=== PATIENT | female | born 1950 | race Caucasian/White ===

== ENCOUNTER 2019-09-12 19:40 | Emergency (ER) | payer MEDICARE, MEDICAID ==
[~2019-09-12] VITALS: Ht 165.1 cm; Wt 107.0 kg
[~2019-09-12 19:40] MED LIST: ATI0.5T; ATOR80TA PO; CARB1TAB21; DONE5TAB26; GABA-347 PO; IBUP-1572; LEVO100T PO; LOSA25TA41 PO; MEMA5TAB; PALI9TAB3 PO; QUET50TA22; SERT50TA10; SITA100T15 PO
[2019-09-12] MEDS ORDERED: normal saline 1000ml 1,000 ML IV ONE (20:40)
[2019-09-12 20:45] LABS: BASOPHILS % (AUTO) 0.3 % (0-1); EOSINOPHILS # (AUTO) 0.1 X10'3 (0-0.9); HEMATOCRIT 31.2 % (35.0-45.0); HEMOGLOBIN 10.5 g/dl (12.0-16.0); LYMPHOCYTES # (AUTO) 0.9 X10'3 (1.1-4.8); LYMPHOCYTES % (AUTO) 14.3 % (21-51); MEAN CORPUSCULAR HEMOGLOBIN 32.1 PG (27.0-31.0); MEAN CORPUSCULAR HGB CONC 33.6 g/dL (33.0-36.5); MEAN CORPUSCULAR VOLUME 95.4 FL (78-98); MEAN PLATELET VOLUME 9.3 FL (7.4-10.4); MONOCYTES # (AUTO) 0.7 X10'3 (0-0.9); MONOCYTES % (AUTO) 10.8 % (2-12); NEUTROPHILS # (AUTO) 4.7 X10'3 (1.8-7.7); NEUTROPHILS % (AUTO) 73.6 % (42-75); PLATELET COUNT 145 X10'3 (140-440); RED BLOOD COUNT 3.27 X10'6 (4.20-5.60); RED CELL DISTRIBUTION WIDTH 14.5 % (11.5-14.5); WHITE BLOOD COUNT 6.4 X10'3 (4.5-11.0)
[2019-09-12 20:52] LABS: ALANINE AMINOTRANSFERASE 30 U/L (12-78); ALBUMIN 3.4 G/DL (3.4-5.0); ALBUMIN/GLOBULIN RATIO 1.1 (1.1-1.5); ALKALINE PHOSPHATASE 91 IU/L (46-116); ANION GAP 9 (8-16); ASPARTATE AMINO TRANSFERASE 41 U/L (10-37); BILIRUBIN,TOTAL 0.6 MG/DL (0.1-1.0); BLOOD UREA NITROGEN 43 MG/DL (7-18); CALCIUM 8.4 MG/DL (8.5-10.1); CHLORIDE 109 MMOL/L (99-107); CREATININE 1.87 MG/DL (0.40-0.90); GLUCOSE 165 MG/DL (70-104); MAGNESIUM 1.6 MG/DL (1.5-2.4); POTASSIUM 3.2 MMOL/L (3.5-5.1); SODIUM 143 MMOL/L (135-145); TOTAL CARBON DIOXIDE 25.2 MMOL/L (24-32); TOTAL PROTEIN 6.5 G/DL (6.4-8.2); eGFR 27 ML/MIN
[2019-09-12] MEDS ORDERED: potassium Cl 20 mEq SR tablet PO STA (21:17)
[2019-09-12] MEDS ORDERED: acetaminophen 325mg tablet PO ONE (21:20)
[2019-09-12] MEDS ORDERED: ondansetron/PF 4mg/2ml inj IV ONE (21:20)
[2019-09-12 22:16] VITALS: BP 135/56
--- NOTE | 2019-09-13 10:04 | NUR ---
Dr. Bhatia was notified by radiologist that patient had a possible fracture of the calcaneus and if patient was having a hard time walking or increased pain today then to come back for a repeat xray. Patient was notified regarding this and stated that her patient was minimal and that it had not worsened. Patient also stated that she could walk on the foot with no difficulty. Patient stated that she would return if still having pain or increased pain in one week. Notifed Dr. Bhatia regarding this.
== END 2019-09-12 23:45 | disposition home or self-care (01) ==
LOC: ER 19:40
DX: M25.571 Pain in right ankle and joints of right foot (principal); E86.0 Dehydration; R53.1 Weakness; E11.65 Type 2 diabetes mellitus with hyperglycemia; F20.9 Schizophrenia, unspecified; Z88.8 Allergy status to other drugs, medicaments and biological substances; Z79.899 Other long term (current) drug therapy; W18.30XA Fall on same level, unspecified, initial encounter; Y93.89 Activity, other specified; Y92.89 Other specified places as the place of occurrence of the external cause; Y99.9 Unspecified external cause status
CPT/HCPCS: 36415; 73610; 80053; 82948; 83735; 85025; 96361; 96374; 99284; J2405; J7030

== ENCOUNTER → 2023-02-23 | Emergency (ER) | payer MEDICARE, MEDICAID ==
[~2023-02-23] VITALS: Ht 157.5 cm; Wt 70.9 kg
[~2023-02-23] MED LIST changes: +ACET-1008 PO; +ALEN70TA80 PO; -ATI0.5T; +ATI1T PO; +ATOR40TA72 PO; +BENZ1TAB79 PO; +BENZ2TAB66 PO; -CARB1TAB21; -DONE5TAB26; +DULA1.5P SQ; +FURO-150 PO; -GABA-347 PO; -IBUP-1572; -LEVO100T PO; +LEVO112T5 PO; +LEVO150T PO; +LOSA50TA64 PO; -MEMA5TAB; +METF-438 PO; +METF500T PO; +OLANZapine **IM** 10 mg inj. IM ONE; -PALI9TAB3 PO; -QUET50TA22; +QUEtiapine 25mg tablet PO STA; +RISP120S SQ; +RISP1TAB98 PO; +RISP2TAB85 PO; -SERT50TA10; -SITA100T15 PO; +TRAZ-251 PO; +acetaminophen 325mg tablet PO ONE; +acetaminophen 325mg tablet PO PRN; +diazepam inj 5 MG/ML inj. IM ONE; +diazepam inj 5 MG/ML inj. IV ONE; +diazepam inj 5 MG/ML inj. ONE; +diphenhydrAMINE 50 mg/ml inj IM ONE; +diphenhydrAMINE 50 mg/ml inj ONE; +levoTHYROXINE 112mcg tablet PO ONE; +loperamide 2mg capsule PO PRN; +magnesium citrate 296ml oral solution PO ONE; +magnesium hydroxide 30ml (MOM) UD suspension PO ONE
[2023-02-23 17:32] LABS: BILIRUBIN,URINE NEGATIVE (Neg); CLARITY,URINE SLIGHTLY CLOUDY (Clear); COLOR,URINE YELLOW (Yellow); GLUCOSE, URINE NEGATIVE (Neg); KETONES,URINE NEGATIVE (Neg); LEUKOCYTE ESTERASE ,URINE SMALL (Neg); NITRITES, URINE NEGATIVE (Neg); OCCULT BLOOD,URINE NEGATIVE (Neg); PROTEIN,URINE NEGATIVE (Neg); UROBILINOGEN,URINE 0.2 E.U/dL (0.2-1.0)
[2023-02-23 17:38] LABS: MUCUS STRANDS FEW /LPF (Neg); SQUAMOUS EPITHELIAL CELL,UR MODERATE /LPF (FEW); UA COLLECTION TYPE CLN CATCH MIDSTREAM
[2023-02-23 17:39] LABS: BACTERIA,URINE 1+ /HPF (Neg); HYALINE CASTS 0-3 /LPF (NEGATIVE); RBC,URINE 0-2 /HPF (0-2); TRANSITIONAL EPI CELLS,URINE FEW /HPF; WBC CLUMPS,URINE MODERATE /HPF (NEGATIVE); WBC,URINE 20-30 /HPF (0-4)
[2023-02-23 17:59] LABS: URINE AMPHETAMINE SCREEN NEGATIVE (Neg); URINE BARBITUATE SCREEN NEGATIVE (Neg); URINE BENZODIAZEPINES SCREEN NEGATIVE (Neg); URINE CANNABINOID SCREEN NEGATIVE (Neg); URINE COCAINE SCREEN NEGATIVE (Neg); URINE METHADONE SCREEN NEGATIVE (Neg); URINE OPIATE SCREEN NEGATIVE (Neg); URINE PHENCYCLIDINE SCREEN NEGATIVE (Neg)
[2023-02-23 20:51] LABS: BASOPHILS % (AUTO) 0.4 % (0-1); EOSINOPHILS # (AUTO) 0.1 X10'3 (0-0.9); EOSINOPHILS % (AUTO) 1.5 % (0-6); HEMATOCRIT 33.7 % (35.0-45.0); HEMOGLOBIN 11.3 g/dl (12.0-16.0); LYMPHOCYTES # (AUTO) 2.2 X10'3 (1.1-4.8); LYMPHOCYTES % (AUTO) 36.3 % (21-51); MEAN CORPUSCULAR HEMOGLOBIN 30.3 PG (27.0-31.0); MEAN CORPUSCULAR HGB CONC 33.5 g/dL (33.0-36.5); MEAN CORPUSCULAR VOLUME 90.5 FL (78-98); MEAN PLATELET VOLUME 8.9 FL (7.4-10.4); MONOCYTES # (AUTO) 0.6 X10'3 (0-0.9); MONOCYTES % (AUTO) 8.9 % (2-12); NEUTROPHILS # (AUTO) 3.3 X10'3 (1.8-7.7); NEUTROPHILS % (AUTO) 52.9 % (42-75); PLATELET COUNT 194 X10'3 (140-440); RED BLOOD COUNT 3.72 X10'6 (4.20-5.60); RED CELL DISTRIBUTION WIDTH 13.6 % (11.5-14.5); WHITE BLOOD COUNT 6.2 X10'3 (4.5-11.0)
[2023-02-23 20:57] LABS: ALANINE AMINOTRANSFERASE 27 U/L (12-78); ALBUMIN/GLOBULIN RATIO 0.8 (1.1-1.5); ALKALINE PHOSPHATASE 71 IU/L (46-116); ANION GAP 13 (8-16); ASPARTATE AMINO TRANSFERASE 24 U/L (10-37); BILIRUBIN,TOTAL 0.4 MG/DL (0.1-1.0); BLOOD UREA NITROGEN 26 MG/DL (7-18); BUN/CREATININE RATIO 23.4 (10.0-20.0); CALCIUM 8.2 MG/DL (8.5-10.1); CHLORIDE 106 MMOL/L (99-107); CREATININE 1.11 MG/DL (0.40-0.90); ETHANOL < 10 MG/DL (<10); GLUCOSE 108 MG/DL (70-104); POTASSIUM 3.5 MMOL/L (3.5-5.1); SODIUM 145 MMOL/L (135-145); TOTAL CARBON DIOXIDE 25.6 MMOL/L (24-32); TOTAL PROTEIN 6.9 G/DL (6.4-8.2); eCRCL 37 ML/MIN; eGFR 48 ML/MIN
[2023-02-23] MEDS: cephalexin 500mg capsule PO SCH (23:49)
[2023-02-24] MEDS: risperiDONE 2mg tablet PO SCH ×4 (01:37→20:00)
[2023-02-24] MEDS: risperiDONE 0.5mg tablet PO SCH ×3 (01:37→19:59)
[2023-02-24] MEDS: traZODone 50mg tablet PO PRN ×2 (02:05→20:00)
[2023-02-24] MEDS: metFORMIN 500mg tablet PO SCH ×2 (07:14→19:59)
[2023-02-24] MEDS: levoTHYROXINE 112mcg tablet PO SCH (07:14)
[2023-02-24] MEDS: furosemide 20MG tablet PO SCH (07:15)
[2023-02-24] MEDS: atorvastatin 20mg tablet PO SCH (07:16)
[2023-02-24] MEDS: acetaminophen 325mg tablet PO SCH ×3 (07:16→20:00)
[2023-02-24] MEDS: losartan 25mg tablet PO SCH (07:17)
[2023-02-24] MEDS: cephalexin 500mg capsule PO SCH ×4 (07:17→20:00)
[2023-02-24] MEDS: benztropine 1mg tablet PO SCH ×2 (07:17→20:00)
[2023-02-25] MEDS: cephalexin 500mg capsule PO SCH ×4 (07:28→19:54)
[2023-02-25] MEDS: risperiDONE 2mg tablet PO SCH ×3 (07:28→19:55)
[2023-02-25] MEDS: furosemide 20MG tablet PO SCH (07:28)
[2023-02-25] MEDS: atorvastatin 20mg tablet PO SCH (07:28)
[2023-02-25] MEDS: risperiDONE 0.5mg tablet PO SCH ×2 (07:29→19:55)
[2023-02-25] MEDS: acetaminophen 325mg tablet PO SCH ×3 (07:29→19:55)
[2023-02-25] MEDS: metFORMIN 500mg tablet PO SCH ×2 (07:29→19:54)
[2023-02-25] MEDS: losartan 25mg tablet PO SCH (07:30)
[2023-02-25] MEDS: benztropine 1mg tablet PO SCH ×2 (07:30→19:56)
[2023-02-25] MEDS: levoTHYROXINE 112mcg tablet PO SCH (07:30)
[2023-02-25 11:33] LABS: BASOPHILS % (AUTO) 0.3 % (0-1); EOSINOPHILS # (AUTO) 0.1 X10'3 (0-0.9); EOSINOPHILS % (AUTO) 2.3 % (0-6); HEMATOCRIT 35.3 % (35.0-45.0); HEMOGLOBIN 11.7 g/dl (12.0-16.0); LYMPHOCYTES # (AUTO) 1.9 X10'3 (1.1-4.8); LYMPHOCYTES % (AUTO) 37.3 % (21-51); MEAN CORPUSCULAR HEMOGLOBIN 30.3 PG (27.0-31.0); MEAN CORPUSCULAR HGB CONC 33.2 g/dL (33.0-36.5); MEAN CORPUSCULAR VOLUME 91.1 FL (78-98); MEAN PLATELET VOLUME 8.8 FL (7.4-10.4); MONOCYTES # (AUTO) 0.4 X10'3 (0-0.9); MONOCYTES % (AUTO) 8.6 % (2-12); NEUTROPHILS # (AUTO) 2.5 X10'3 (1.8-7.7); NEUTROPHILS % (AUTO) 51.5 % (42-75); PLATELET COUNT 205 X10'3 (140-440); RED BLOOD COUNT 3.87 X10'6 (4.20-5.60); RED CELL DISTRIBUTION WIDTH 13.6 % (11.5-14.5)
[2023-02-25 11:53] LABS: ALANINE AMINOTRANSFERASE 21 U/L (12-78); ALBUMIN 2.9 G/DL (3.4-5.0); ALBUMIN/GLOBULIN RATIO 0.8 (1.1-1.5); ALKALINE PHOSPHATASE 74 IU/L (46-116); ANION GAP 10 (8-16); ASPARTATE AMINO TRANSFERASE 24 U/L (10-37); BILIRUBIN,TOTAL 0.3 MG/DL (0.1-1.0); BLOOD UREA NITROGEN 16 MG/DL (7-18); BUN/CREATININE RATIO 13.8 (10.0-20.0); CALCIUM 8.1 MG/DL (8.5-10.1); CHLORIDE 105 MMOL/L (99-107); CREATININE 1.16 MG/DL (0.40-0.90); GLUCOSE 138 MG/DL (70-104); POTASSIUM 4.1 MMOL/L (3.5-5.1); SODIUM 142 MMOL/L (135-145); TOTAL CARBON DIOXIDE 27.3 MMOL/L (24-32); TOTAL PROTEIN 6.4 G/DL (6.4-8.2); eCRCL 35 ML/MIN; eGFR 46 ML/MIN
[2023-02-25 15:55] LABS: THYROID STIMULATING HORMONE 11.22 ulU/ml (0.34-4.50)
[2023-02-25] MEDS: traZODone 50mg tablet PO PRN (19:54)
[2023-02-26] MEDS: levoTHYROXINE 112mcg tablet PO SCH (07:48)
[2023-02-26] MEDS: metFORMIN 500mg tablet PO SCH ×2 (08:43→20:58)
[2023-02-26] MEDS: risperiDONE 0.5mg tablet PO SCH ×2 (08:43→20:53)
[2023-02-26] MEDS: benztropine 1mg tablet PO SCH ×2 (08:43→20:53)
[2023-02-26] MEDS: cephalexin 500mg capsule PO SCH ×4 (08:43→20:53)
[2023-02-26] MEDS: atorvastatin 20mg tablet PO SCH (08:43)
[2023-02-26] MEDS: furosemide 20MG tablet PO SCH (08:44)
[2023-02-26] MEDS: acetaminophen 325mg tablet PO SCH ×3 (08:44→20:58)
[2023-02-26] MEDS: losartan 25mg tablet PO SCH (08:45)
[2023-02-26] MEDS: risperiDONE 2mg tablet PO SCH ×3 (08:45→20:53)
[2023-02-26] MEDS: traZODone 50mg tablet PO PRN (20:53)
[2023-02-27] MEDS: atorvastatin 20mg tablet PO SCH (08:00)
[2023-02-27] MEDS: furosemide 20MG tablet PO SCH (08:00)
[2023-02-27] MEDS: benztropine 1mg tablet PO SCH ×2 (08:00→21:00)
[2023-02-27] MEDS: risperiDONE 2mg tablet PO SCH ×3 (08:00→21:00)
[2023-02-27] MEDS: acetaminophen 325mg tablet PO SCH ×3 (08:00→21:00)
[2023-02-27] MEDS: risperiDONE 0.5mg tablet PO SCH ×2 (08:00→20:00)
[2023-02-27] MEDS: losartan 25mg tablet PO SCH (08:00)
[2023-02-27] MEDS: cephalexin 500mg capsule PO SCH ×4 (08:00→21:00)
[2023-02-27] MEDS: metFORMIN 500mg tablet PO SCH ×2 (08:00→20:00)
[2023-02-28] MEDS: levoTHYROXINE 112mcg tablet PO SCH (07:02)
[2023-02-28] MEDS: furosemide 20MG tablet PO SCH (08:03)
[2023-02-28] MEDS: metFORMIN 500mg tablet PO SCH ×2 (08:03→20:58)
[2023-02-28] MEDS: cephalexin 500mg capsule PO SCH ×4 (08:03→20:58)
[2023-02-28] MEDS: atorvastatin 20mg tablet PO SCH (08:04)
[2023-02-28] MEDS: losartan 25mg tablet PO SCH (08:04)
[2023-02-28] MEDS: risperiDONE 0.5mg tablet PO SCH ×2 (08:05→20:58)
[2023-02-28] MEDS: risperiDONE 2mg tablet PO SCH ×3 (08:05→20:58)
[2023-02-28] MEDS: acetaminophen 325mg tablet PO SCH ×3 (08:05→19:25)
[2023-02-28] MEDS: benztropine 1mg tablet PO SCH ×2 (08:05→20:58)
[2023-02-28] MEDS: traZODone 50mg tablet PO PRN (20:58)
[2023-03-01] MEDS: atorvastatin 20mg tablet PO SCH (08:15)
[2023-03-01] MEDS: losartan 25mg tablet PO SCH (08:16)
[2023-03-01] MEDS: cephalexin 500mg capsule PO SCH ×4 (08:16→20:25)
[2023-03-01] MEDS: levoTHYROXINE 112mcg tablet PO SCH (08:16)
[2023-03-01] MEDS: furosemide 20MG tablet PO SCH (08:16)
[2023-03-01] MEDS: benztropine 1mg tablet PO SCH ×2 (08:16→20:25)
[2023-03-01] MEDS: metFORMIN 500mg tablet PO SCH ×2 (08:17→20:25)
[2023-03-01] MEDS: risperiDONE 2mg tablet PO SCH ×3 (08:19→20:25)
[2023-03-01] MEDS: risperiDONE 0.5mg tablet PO SCH ×2 (08:19→20:25)
[2023-03-01] MEDS: acetaminophen 325mg tablet PO SCH ×3 (08:19→20:25)
[2023-03-01] MEDS: polyethylene glycol 3350 17gm powd pack PO SCH (20:24)
[2023-03-02] MEDS: cephalexin 500mg capsule PO SCH ×4 (08:36→20:04)
[2023-03-02] MEDS: risperiDONE 0.5mg tablet PO SCH ×2 (08:36→20:05)
[2023-03-02] MEDS: metFORMIN 500mg tablet PO SCH ×2 (08:36→20:03)
[2023-03-02] MEDS: benztropine 1mg tablet PO SCH ×2 (08:36→20:03)
[2023-03-02] MEDS: losartan 25mg tablet PO SCH (08:36)
[2023-03-02] MEDS: risperiDONE 2mg tablet PO SCH ×3 (08:36→20:04)
[2023-03-02] MEDS: furosemide 20MG tablet PO SCH (08:37)
[2023-03-02] MEDS: levoTHYROXINE 112mcg tablet PO SCH (08:37)
[2023-03-02] MEDS: acetaminophen 325mg tablet PO SCH ×3 (08:37→20:04)
[2023-03-02] MEDS: atorvastatin 20mg tablet PO SCH (08:37)
[2023-03-02 18:11] LABS: BILIRUBIN,URINE NEGATIVE (Neg); CLARITY,URINE CLEAR (Clear); COLOR,URINE YELLOW (Yellow); GLUCOSE, URINE NEGATIVE (Neg); KETONES,URINE NEGATIVE (Neg); LEUKOCYTE ESTERASE ,URINE TRACE (Neg); NITRITES, URINE NEGATIVE (Neg); OCCULT BLOOD,URINE NEGATIVE (Neg); PH,URINE 6.5 (4.8-8.0); PROTEIN,URINE NEGATIVE (Neg); UROBILINOGEN,URINE 0.2 E.U/dL (0.2-1.0)
[2023-03-02 18:16] LABS: UA COLLECTION TYPE CLN CATCH MIDSTREAM
[2023-03-02 18:17] LABS: CAL OXALATE CRYSTALS FEW /HPF (NEGATIVE); SQUAMOUS EPITHELIAL CELL,UR MANY /LPF (FEW); TRANSITIONAL EPI CELLS,URINE FEW /HPF
[2023-03-02 18:18] LABS: BACTERIA,URINE FEW /HPF (Neg); RBC,URINE 0-2 /HPF (0-2); WBC,URINE 0-4 /HPF (0-4)
[2023-03-02] MEDS: polyethylene glycol 3350 17gm powd pack PO SCH (20:06)
[2023-03-03] MEDS: benztropine 1mg tablet PO SCH ×2 (08:25→20:09)
[2023-03-03] MEDS: risperiDONE 0.5mg tablet PO SCH ×2 (08:26→20:09)
[2023-03-03] MEDS: furosemide 20MG tablet PO SCH (08:26)
[2023-03-03] MEDS: cephalexin 500mg capsule PO SCH (08:26)
[2023-03-03] MEDS: risperiDONE 2mg tablet PO SCH ×3 (08:26→20:09)
[2023-03-03] MEDS: losartan 25mg tablet PO SCH (08:27)
[2023-03-03] MEDS: levoTHYROXINE 112mcg tablet PO SCH (08:27)
[2023-03-03] MEDS: atorvastatin 20mg tablet PO SCH (08:27)
[2023-03-03] MEDS: metFORMIN 500mg tablet PO SCH ×2 (08:27→20:08)
[2023-03-03] MEDS: acetaminophen 325mg tablet PO SCH (08:28)
[2023-03-03 13:07] LABS: BILIRUBIN,URINE NEGATIVE (Neg); CLARITY,URINE SLIGHTLY CLOUDY (Clear); COLOR,URINE YELLOW (Yellow); GLUCOSE, URINE NEGATIVE (Neg); KETONES,URINE NEGATIVE (Neg); LEUKOCYTE ESTERASE ,URINE TRACE (Neg); NITRITES, URINE NEGATIVE (Neg); OCCULT BLOOD,URINE NEGATIVE (Neg); PROTEIN,URINE NEGATIVE (Neg); UROBILINOGEN,URINE 0.2 E.U/dL (0.2-1.0)
[2023-03-03 13:17] LABS: UA COLLECTION TYPE CLN CATCH MIDSTREAM
[2023-03-03 13:35] LABS: SQUAMOUS EPITHELIAL CELL,UR MANY /LPF (FEW); TRANSITIONAL EPI CELLS,URINE FEW /HPF
[2023-03-03 13:36] LABS: AMORPHOUS PHOSPHATES 1+; BACTERIA,URINE FEW /HPF (Neg)
[2023-03-03 13:38] LABS: RBC,URINE 0-2 /HPF (0-2); YEAST MODERATE /HPF (NEGATIVE)
[2023-03-03 17:34] LABS: BILIRUBIN,URINE NEGATIVE (Neg); CLARITY,URINE CLEAR (Clear); COLOR,URINE YELLOW (Yellow); GLUCOSE, URINE NEGATIVE (Neg); KETONES,URINE NEGATIVE (Neg); LEUKOCYTE ESTERASE ,URINE NEGATIVE (Neg); NITRITES, URINE NEGATIVE (Neg); OCCULT BLOOD,URINE NEGATIVE (Neg); PH,URINE 6.5 (4.8-8.0); PROTEIN,URINE NEGATIVE (Neg); UROBILINOGEN,URINE 0.2 E.U/dL (0.2-1.0)
[2023-03-03 17:42] LABS: UA COLLECTION TYPE STRAIGHT CATH
[2023-03-03] MEDS: acetaminophen 325mg tablet PO PRN (18:04)
[2023-03-03] MEDS: polyethylene glycol 3350 17gm powd pack PO SCH (20:07)
[2023-03-03] MEDS: traZODone 50mg tablet PO PRN (23:28)
[2023-03-04] MEDS: acetaminophen 325mg tablet PO PRN (03:25)
[2023-03-04] MEDS: atorvastatin 20mg tablet PO SCH (07:19)
[2023-03-04] MEDS: furosemide 20MG tablet PO SCH (07:19)
[2023-03-04] MEDS: benztropine 1mg tablet PO SCH ×2 (07:19→20:42)
[2023-03-04] MEDS: risperiDONE 0.5mg tablet PO SCH ×2 (07:19→20:41)
[2023-03-04] MEDS: metFORMIN 500mg tablet PO SCH ×2 (07:19→20:41)
[2023-03-04] MEDS: levoTHYROXINE 112mcg tablet PO SCH (07:19)
[2023-03-04] MEDS: risperiDONE 2mg tablet PO SCH ×3 (07:20→20:42)
[2023-03-04] MEDS: losartan 25mg tablet PO SCH (07:20)
[2023-03-04] MEDS: traZODone 50mg tablet PO PRN (20:42)
[2023-03-04] MEDS: polyethylene glycol 3350 17gm powd pack PO SCH (21:00)
[2023-03-05] MEDS: levoTHYROXINE 112mcg tablet PO SCH (07:32)
[2023-03-05] MEDS: atorvastatin 20mg tablet PO SCH (07:32)
[2023-03-05] MEDS: losartan 25mg tablet PO SCH (07:33)
[2023-03-05] MEDS: furosemide 20MG tablet PO SCH (07:34)
[2023-03-05] MEDS: metFORMIN 500mg tablet PO SCH ×2 (07:34→20:28)
[2023-03-05] MEDS: risperiDONE 0.5mg tablet PO SCH ×2 (07:34→20:28)
[2023-03-05] MEDS: benztropine 1mg tablet PO SCH ×2 (07:34→20:28)
[2023-03-05] MEDS: risperiDONE 2mg tablet PO SCH ×3 (07:34→20:28)
[2023-03-05] MEDS: traZODone 50mg tablet PO PRN (20:29)
[2023-03-05] MEDS: polyethylene glycol 3350 17gm powd pack PO SCH (21:00)
[2023-03-06] MEDS: levoTHYROXINE 112mcg tablet PO SCH (09:23)
[2023-03-06] MEDS: benztropine 1mg tablet PO SCH ×2 (09:23→21:59)
[2023-03-06] MEDS: losartan 25mg tablet PO SCH (09:23)
[2023-03-06] MEDS: atorvastatin 20mg tablet PO SCH (09:24)
[2023-03-06] MEDS: metFORMIN 500mg tablet PO SCH ×2 (09:24→22:00)
[2023-03-06] MEDS: risperiDONE 0.5mg tablet PO SCH ×2 (09:24→22:05)
[2023-03-06] MEDS: furosemide 20MG tablet PO SCH (09:24)
[2023-03-06] MEDS: risperiDONE 2mg tablet PO SCH ×3 (09:24→21:59)
[2023-03-06] MEDS: polyethylene glycol 3350 17gm powd pack PO SCH (21:00)
[2023-03-06] MEDS: traZODone 50mg tablet PO PRN (22:00)
[2023-03-07 08:34] VITALS: BP_DIAS 63; TEMP 97.7; O2SAT 96
[2023-03-07] MEDS: furosemide 20MG tablet PO SCH (08:43)
[2023-03-07] MEDS: atorvastatin 20mg tablet PO SCH (08:43)
[2023-03-07] MEDS: metFORMIN 500mg tablet PO SCH (08:43)
[2023-03-07 08:44] VITALS: BP_SYST 130; PULSE 93
[2023-03-07] MEDS: benztropine 1mg tablet PO SCH (08:44)
[2023-03-07] MEDS: risperiDONE 2mg tablet PO SCH ×2 (08:44→12:38)
[2023-03-07] MEDS: risperiDONE 0.5mg tablet PO SCH (08:44)
[2023-03-07] MEDS: losartan 25mg tablet PO SCH (08:44)
[2023-03-07] MEDS: levoTHYROXINE 112mcg tablet PO SCH (08:51)
[2023-03-07 09:17] VITALS: RESP 16
== END | disposition home or self-care (01) ==
LOC: ER 14:29
DX: N39.0 Urinary tract infection, site not specified (principal); Z20.822 Contact with and (suspected) exposure to COVID-19; L03.116 Cellulitis of left lower limb; E11.9 Type 2 diabetes mellitus without complications; F29 Unspecified psychosis not due to a substance or known physiological condition; F20.9 Schizophrenia, unspecified; Z88.8 Allergy status to other drugs, medicaments and biological substances; Z79.899 Other long term (current) drug therapy
CPT/HCPCS: 36415; 72170; 80053; 80305; 80320; 81001; 81003; 82948; 84443; 85025; 87088; 87811; 96372; 99285